=== PATIENT | male | born 1955 | race African-American/Black ===

== ENCOUNTER 2016-12-27 13:37 | Emergency (ER) | payer MEDICAID ==
[~2016-12-27] VITALS: Ht 167.6 cm; Wt 121.0 kg
[2016-12-27 13:41] VITALS: BP 145/84
== END 2016-12-27 16:24 | disposition left against medical advice (07) ==
LOC: ER 16:22
DX: Z04.3 Encounter for examination and observation following other accident (principal); R51 Headache; Z53.21 Procedure and treatment not carried out due to patient leaving prior to being seen by health care provider
CPT/HCPCS: Z7610 ×2